=== PATIENT | male | born 1975 | race Caucasian/White ===

== ENCOUNTER → 2018-02-25 | Outpatient (CLI) | payer BC, OTHER ==
[~2018-02-25] MED LIST: ASPI-621 PO; CELE200C PO; DOCU-131 PO; Embrel INJ; HYDR25TA6 PO; LISI-170 PO; MELO15TA24 PO; MUPI22OI2 TD; ONDA4TAB10 PO; ONDA4TAB7 PO; OXYC5TAB2 PO; TRAM50TA2 PO
[2018-02-25 15:00] LABS: MICROSCOPIC NOT IND
[2018-02-25 15:02] LABS: CULTURE INDICATED? NO
[2018-02-25 15:02] LABS: BASOPHILS # (AUTO) 0.06 x10^3/uL (0-0.1); BASOPHILS % (AUTO) 1 % (0-1); EOSINOPHILS # (AUTO) 0.24 x10^3/uL (0-0.4); EOSINOPHILS % (AUTO) 3 % (1-7); LYMPHOCYTES # (AUTO) 2.91 x10^3/uL (1-3.4); LYMPHOCYTES % (AUTO) 42 % (22-44); MD NO; MEAN CORPUSCULAR HEMOGLOBIN 31.2 pg (27.5-34.5); MEAN CORPUSCULAR VOLUME 91.7 fL (81-97); MONOCYTES # (AUTO) 0.55 x10^3/uL (0.2-0.8); MONOCYTES % (AUTO) 8 % (2-9); NEUTROPHILS # (AUTO) 3.19 x10^3/uL (1.8-6.8); NEUTROPHILS % (AUTO) 46 % (42-75); PLATELET COUNT 268 x10^3/uL (130-400); RED BLOOD COUNT 4.66 x10^6/uL (4.38-5.82); RED CELL DISTRIBUTION WIDTH 12.8 % (9.4-14.8)
[2018-02-25 15:14] LABS: ALBUMIN 3.7 g/dL (3.4-5.0); ANION GAP 8 mmol/L (5-15); CALCIUM 8.9 mg/dL (8.5-10.1); CHLORIDE 109 mmol/L (98-107)
[2018-02-25 15:18] LABS: ALANINE AMINOTRANSFERASE 104 U/L (12-78); ALKALINE PHOSPHATASE 88 U/L (45-117); BILIRUBIN,TOTAL 0.3 mg/dL (0.2-1.0); CREATININE 1.01 mg/dL (0.7-1.3); TOTAL PROTEIN 7.7 g/dL (6.4-8.2)
[2018-02-25 15:26] LABS: HEMOGLOBIN A1C 5.5 % (4.2-6.3)
[2018-02-25 15:27] LABS: INTERNATIONAL NORMALIZED RATIO 1.06 (0.93-1.1); PROTHROMBIN TIME 10.9 Seconds (9.6-11.5)
== END | disposition home or self-care (01) ==
LOC: STAR 13:35
PROVIDERS: ATTEND Orthopaedic Surgery
DX: Z01.818 Encounter for other preprocedural examination (principal); M17.11 Unilateral primary osteoarthritis, right knee; Z87.891 Personal history of nicotine dependence
CPT/HCPCS: 36415; 80053; 81003; 83036; 85025; 85610; 85730; 87081; 87147; 87806; G0475

== ENCOUNTER 2018-03-02 11:31 | Observation (INO) | payer BC, OTHER ==
[~2018-03-02] VITALS: Ht 170.2 cm; Wt 135.5 kg
[~2018-03-02 11:31] MED LIST changes: -ASPI-621 PO; -CELE200C PO; -DOCU-131 PO; +EPINEPHRINE 1 MG/ML, 1ML ONE; +KETOROLAC 60 MG/2 ML ONE; -ONDA4TAB10 PO; -ONDA4TAB7 PO; -OXYC5TAB2 PO; +ROPIvacaine/PF 0.2%, 20 ML ONE; +TRANEXAMIC ACID 100 MG/ML, 10ML ONE; +VANCOMYCIN 1,000 MG ONE
[2018-03-02] MEDS ORDERED: LACTATED RINGERS 1,000 ML IV SCH (12:10)
[2018-03-02] MEDS ORDERED: GABAPENTIN 300 MG CAPSULE PO ONE (12:30)
[2018-03-02] MEDS ORDERED: ACETAMINOPHEN 500 MG TABLET PO ONE (12:30)
[2018-03-02] MEDS ORDERED: MIDAZOLAM 1 MG/ML, 2ML ONE (12:36)
[2018-03-02] MEDS ORDERED: FENTANYL PF 250 MCG/5ML ONE (12:36)
[2018-03-02] MEDS ORDERED: ROCURONIUM 10MG/ML,5ML ONE (14:18)
[2018-03-02] MEDS ORDERED: NEOSTIGMINE 1 MG/ML, 10ML ONE (14:18)
[2018-03-02] MEDS ORDERED: GLYCOPYRROLATE 0.2MG/1ML, 5ML ONE (14:18)
[2018-03-02] MEDS ORDERED: SUCCINYLCHOLINE 20 MG/ML, 10ML ONE (14:18)
[2018-03-02] MEDS ORDERED: PROPOFOL 10 MG/ML, 20ML ONE (14:18)
[2018-03-02] MEDS ORDERED: PROMETHAZINE 12.5 MG SUPP PR PRN (15:00)
[2018-03-02] MEDS ORDERED: HYDROmorphone 2 MG/ML, 1ML IV PRN (15:00)
[2018-03-02] MEDS ORDERED: ONDANSETRON 2MG/ML, 2ML IV PRN (15:00)
[2018-03-02] MEDS ORDERED: DIPHENHYDRAMINE 25 MG CAPSULE PO PRN (15:00)
[2018-03-02] MEDS ORDERED: HYDROmorphone 1 MG/ML, 1ML IV PRN (15:00)
[2018-03-02] MEDS ORDERED: hydrALAzine 20 MG/ML, 1ML IV PRN (15:00)
[2018-03-02] MEDS ORDERED: SENNA/DOCUSATE TABLET PO PRN (15:00)
[2018-03-02] MEDS ORDERED: KETOROLAC 30 MG/1 ML IV PRN (15:00)
[2018-03-02] MEDS ORDERED: MEPERIDINE/PF 25MG/0.5ML IVPush PRN (15:00)
[2018-03-02] MEDS ORDERED: PROMETHAZINE 25 MG/ML, 1ML IM PRN (15:00)
[2018-03-02] MEDS ORDERED: LABETALOL 5MG/ML, 20ML IV PRN (15:00)
[2018-03-02] MEDS ORDERED: OXYcodone IR 5MG TABLET PO PRN (15:00)
[2018-03-02] MEDS ORDERED: OXYcodone 5 MG/5 ML ORAL.SOL UDC PO PRN (15:00)
[2018-03-02] MEDS ORDERED: BISACODYL 10 MG SUPP PR PRN (15:00)
[2018-03-02] MEDS ORDERED: METOCLOPRAMIDE 5 MG/ML, 2ML IV PRN (15:00)
[2018-03-02] MEDS ORDERED: ALBUTEROL SULFATE 2.5 MG/3 ML NPPB PRN (15:00)
[2018-03-02] MEDS ORDERED: ONDANSETRON 4 MG TABLET PO PRN (15:00)
[2018-03-02] MEDS ORDERED: TRANEXAMIC ACID 1,000 MG in SODIUM CHLORIDE 0.9% 100 ML IVPB ONE (15:00)
[2018-03-02] MEDS ORDERED: ONDANSETRON 2MG/ML, 2ML IVPush PRN (15:00)
[2018-03-02] MEDS ORDERED: MAGNESIUM HYDROXIDE 8%, 30ML UDC PO PRN (15:00)
[2018-03-02] MEDS ORDERED: FENTANYL PF 100 MCG/2ML IV PRN (15:00)
[2018-03-02] MEDS ORDERED: ALUMINUM/MAG/SIMETHICONE 30 ML UDC PO PRN (15:00)
[2018-03-02] MEDS ORDERED: PROMETHAZINE 25 MG/ML, 1ML IV PRN (15:00)
[2018-03-02] MEDS ORDERED: ACETAMINOPHEN 650 MG/20.3 ML UDC ONE (16:15)
[2018-03-02] MEDS ORDERED: OXYcodone 5 MG/5 ML ORAL.SOL UDC ONE (16:15)
[2018-03-02] MEDS: ACETAMINOPHEN 650 MG/20.3 ML UDC PO PRN ×2 (16:18→22:01)
[2018-03-02] MEDS ORDERED: FENTANYL PF 100 MCG/2ML ONE (16:22)
[2018-03-02] MEDS ORDERED: ONDANSETRON 2MG/ML, 2ML ONE (16:25)
[2018-03-02] MEDS ORDERED: METOCLOPRAMIDE 5 MG/ML, 2ML ONE (16:25)
[2018-03-02 17:15] VITALS: BP 98/63
[2018-03-02] MEDS: ASPIRIN 81 MG TABLET EC PO SCH (18:26)
[2018-03-02] MEDS ORDERED: SODIUM CHLORIDE 0.9% 1,000ML IVBOLUS ONE (20:00)
[2018-03-02 20:52] VITALS: BP 88/46
[2018-03-02] MEDS: DOCUSATE 100 MG CAPSULE PO SCH (21:00)
[2018-03-02] MEDS: D5%-0.45NACL+KCL 20MEQ 1,000 ML IV SCH ×2 (21:17→22:12)
[2018-03-02 21:28] VITALS: BP 73/44
[2018-03-02] MEDS: CEFAZOLIN PMX 1GM/50ML 50 ML IVPB SCH (21:56)
[2018-03-02] MEDS ORDERED: SODIUM CHLORIDE 0.9% 1,000ML IVBOLUS PRN (22:00)
[2018-03-02 23:57] VITALS: BP 95/45
[2018-03-03 03:04] VITALS: BP 88/55
[2018-03-03] MEDS: D5%-0.45NACL+KCL 20MEQ 1,000 ML IV SCH ×2 (05:07→10:37)
[2018-03-03] MEDS: ACETAMINOPHEN 650 MG/20.3 ML UDC PO PRN (05:24)
[2018-03-03] MEDS: ASPIRIN 81 MG TABLET EC PO SCH (05:24)
[2018-03-03] MEDS ORDERED: DEXAMETHASONE 4 MG/ML, 1ML IVPush SCH (06:00)
[2018-03-03] MEDS: CEFAZOLIN PMX 1GM/50ML 50 ML IVPB SCH (06:03)
[2018-03-03 07:36] VITALS: BP 97/60
[2018-03-03] MEDS: DOCUSATE 100 MG CAPSULE PO SCH (08:38)
[2018-03-03] MEDS ORDERED: HYDROCHLOROTHIAZIDE 25 MG TABLET PO SCH (09:00)
[2018-03-03] MEDS ORDERED: LISINOPRIL 20 MG TABLET PO SCH (09:00)
[2018-03-03] MEDS ORDERED: TAMSULOSIN 0.4 MG CAP.ER.24H PO SCH (09:00)
[2018-03-03] MEDS ORDERED: ASPI-621 PO (09:04)
[2018-03-03] MEDS ORDERED: ONDA4TAB7 PO (09:06)
[2018-03-03] MEDS ORDERED: DOCU-131 PO (09:08)
[2018-03-03] MEDS ORDERED: ONDA4TAB10 PO (09:08)
[2018-03-03] MEDS ORDERED: CELE200C PO (09:09)
[2018-03-03] MEDS ORDERED: TRAM50TA2 PO (09:10)
[2018-03-03] MEDS ORDERED: OXYC5TAB2 PO (09:13)
[2018-03-03] MEDS ORDERED: KETOROLAC 30 MG/1 ML IV SCH (15:00)
== END 2018-03-03 12:28 | disposition home or self-care (01) ==
LOC: OUT 11:31 → EDSTATUS 14:00 → ORIP 14:37 → 4NOR 17:33 → DCLOUNGE 03-03 12:13
PROVIDERS: ADMIT Orthopaedic Surgery; ATTEND Orthopaedic Surgery
DX: M17.11 Unilateral primary osteoarthritis, right knee (principal); M71.20 Synovial cyst of popliteal space [Baker], unspecified knee; M65.9 Synovitis and tenosynovitis, unspecified; E66.01 Morbid (severe) obesity due to excess calories; G47.33 Obstructive sleep apnea (adult) (pediatric)
CPT/HCPCS: 27447; 36415; 73560; 85014; 85018; 96365; 96366; 96375; 97116; 97150; 97161; 97166; C1713; C1776; G0378; J0171; J0330; J0690; J1100; J1170; J1885; J2250; J2405; J2704; J2710; J2765; J2795; J3010; J3480; J3490; J7030; J7120; J3370